=== PATIENT | female | born 1980 | race Two or more races ===

== ENCOUNTER 2019-06-26 13:47 | Emergency (ER) | payer OTHER ==
[2019-06-26 13:54] VITALS: BMI 31.1
[2019-06-26] MEDS ORDERED: FAMOTIDINE 20 MG/50 ML IVPB 20 MG/50 ML MG IVPB ONE ×2 (14:23→14:30)
[2019-06-26] MEDS ORDERED: SODIUM CHLORIDE 1,000 ML IV STA ×2 (14:24→15:50)
[2019-06-26] MEDS ORDERED: MAG HYDROX/AL HYDROX/SIMETH 30 ML UNIT-DOSE CUP PO ONE (14:24)
[2019-06-26] MEDS ORDERED: ONDANSETRON 4 MG/2 ML VIAL IVPUSH ONE ×2 (14:24→15:49)
[2019-06-26] MEDS ORDERED: MAG HYDROX/AL HYDROX/SIMETH 30 ML UNIT-DOSE CUP ONE (14:29)
[2019-06-26] MEDS ORDERED: ONDANSETRON 4 MG/2 ML VIAL ONE ×2 (14:30→16:04)
[2019-06-26 14:45] LABS: BASO % 0.7 % (0-2.0); EOS % 2.3 % (0-4.5); HEMATOCRIT 31.8 % (32.4-45.2); HEMOGLOBIN 10.6 GM/dL (10.7-15.3); LYMPH % 20.7 % (8-40); MCH 28.6 pg (25.7-33.7); MCHC 33.3 g/dl (32.0-36.0); MEAN PLT VOLUME 7.7 fl (7.5-11.1); MONO % 7.5 % (3.8-10.2); NEUT % 68.8 % (42.8-82.8); PLATELET COUNT 326 K/MM3 (134-434); RDW 14.2 % (11.6-15.6)
[2019-06-26 15:09] LABS: ALBUMIN 3.9 g/dl (3.4-5.0); BILIRUBIN,TOTAL 0.2 mg/dL (0.2-1); BLOOD UREA NITROGEN 11.8 mg/dL (7-18); CALCIUM 9.1 mg/dL (8.5-10.1); CREATININE 0.8 mg/dL (0.55-1.3); POTASSIUM 3.9 mmol/L (3.5-5.1); TOT PROT 7.4 g/dl (6.4-8.2)
--- NOTE | 2019-06-26 15:09 | PDOC ---
History of Present Illness - General Chief Complaint: Pain Stated Complaint: ABD. PAIN Time Seen by Provider: 06/26/19 14:22 History Source: Patient - History of Present Illness Timing/Duration: reports: constant Abdominal Pain Onset Location: reports: epigastric Pain Radiation: reports: back Past History - Past Medical History Allergies/Adverse Reactions: Allergies Allergy/AdvReac Type Severity Reaction Status Date / Time No Known Allergies Allergy Verified 06/26/19 14:18 Home Medications: Ambulatory Orders Acetaminophen [Tylenol -] 1,000 mg PO Q6H #30 tablet 06/26/19 Famotidine [Pepcid] 20 mg PO BID #14 tablet 06/26/19 Mag Hydrox/Al Hydrox/Simeth [Mylanta Suspension -] 30 ml PO Q6H #1 bottle 06/26/19 Ondansetron HCl [Zofran] 4 mg PO Q8H #12 tablet 06/26/19 - Psycho Social/Smoking Cessation Hx Smoking History: Never smoked Information on smoking cessation initiated: No Hx Alcohol Use: No Drug/Substance Use Hx: No Review of Systems - Review of Systems Constitutional: No: Chills, Fever Respiratory: No: Shortness of Breath Cardiac (ROS): No: Chest Pain ABD/GI: Yes: Nausea, Vomiting. No: Blood Streaked Bowels, Constipated, Diarrhea, Rectal Bleeding, Tarry Stools : No: Burning, Dysuria, Discharge, Hematuria *Physical Exam - Vital Signs Last Vital Signs Temp Pulse Resp BP Pulse Ox 97.5 F L 85 17 122/74 100 06/26/19 13:51 06/26/19 13:51 06/26/19 13:51 06/26/19 13:51 06/26/19 13:51 - Physical Exam General Appearance: Yes: Appropriately Dressed, Mild Distress HEENT: positive: Normal Voice Neck: positive: Supple Respiratory/Chest: positive: Lungs Clear, Normal Breath Sounds. negative: Respiratory Distress Cardiovascular: positive: Regular Rate, S1, S2 Gastrointestinal/Abdominal: positive: Normal Bowel Sounds, Tender (to epigatrium only), Soft. negative: Distended, Guarding, Rebound Musculoskeletal: negative: CVA Tenderness Integumentary: positive: Dry, Warm Neurologic: positive: Fully Oriented, Alert, Normal Mood/Affect ED Treatment Course - LABORATORY CBC & Chemistry Diagram: 06/26/19 14:18 06/26/19 14:18 - ADDITIONAL ORDERS Additional order review: 06/26/19 14:18 RBC 3.70 MCV 86.0 MCHC 33.3 RDW 14.2 MPV 7.7 Neutrophils % 68.8 Lymphocytes % 20.7 Monocytes % 7.5 Eosinophils % 2.3 Basophils % 0.7 - Medications Given in the ED: ED Medications Discontinued Medications Generic Name Dose Route Start Last Admin Trade Name Jes PRN Reason Stop Dose Admin Al Hydroxide/Mg Hydroxide 30 ml 06/26/19 14:24 06/26/19 14:39 Mylanta Oral Suspension - PO 06/26/19 14:25 30 ml ONCE ONE Administration Famotidine/Sodium Chloride 20 mg in 50 mls @ 100 mls/hr 06/26/19 14:23 06/26/19 14:39 Pepcid 20 Mg Premixed Ivpb - IVPB 06/26/19 14:52 100 mls/hr ONCE ONE Administration Ondansetron HCl 4 mg 06/26/19 14:24 06/26/19 14:39 Zofran Injection IVPUSH 06/26/19 14:25 4 mg ONCE ONE Administration Medical Decision Making - Medical Decision Making 06/26/19 15:02 39-year-old female, no significant history, here with severe upper abdominal pain radiating to back with nausea/vomiting that started this a.m. No change in bowel movements, dysuri,a hematuria, fever or chills. No history of similar symptoms. Denies history of gallstones or kidney stones. No excessive alcohol or NSAID use per patient see exam ? gastritis/GERD vs biliary source vs UTI/pyelo, less likely renal colic, pancreatitis or appy -trial of GI cocktail -labs -reassess 06/26/19 15:50 Labs unremarkable. Patient continues to complain of severe epigastric pain and nausea. We will continue to control symptoms in ED. Pt signed out to NIDA Byers at this time Discharge - Discharge Information Problems reviewed: Yes Clinical Impression/Diagnosis: Epigastric abdominal pain - Additional Discharge Information Prescriptions: Mag Hydrox/Al Hydrox/Simeth [Mylanta Suspension -] 30 ml PO Q6H #1 bottle Famotidine [Pepcid] 20 mg PO BID #14 tablet Acetaminophen [Tylenol -] 1,000 mg PO Q6H #30 tablet Ondansetron HCl [Zofran] 4 mg PO Q8H #12 tablet - Follow up/Referral - Patient Discharge Instructions - Post Discharge Activity
[2019-06-26] MEDS ORDERED: ACETAMINOPHEN 1000 MG/100 ML VIAL (NON FORMULARY) IVPB ONE (15:25)
[2019-06-26 15:58] LABS: EPI CELLS 2.3 /HPF (0-5/HPF); HYALINE CASTS 4 /lpf (0-8); URINE APPEARANCE CLOUDY; URINE BACTERIA 9.6 /hpf (NEGATIVE); URINE BILIRUBIN NEGATIVE (NEGATIVE); URINE COLOR YELLOW; URINE GLUCOSE (UA) NEGATIVE (NEGATIVE); URINE KETONE NEGATIVE (NEGATIVE); URINE LEUK ESTERASE NEGATIVE (NEGATIVE); URINE NITRITE NEGATIVE (NEGATIVE); URINE PROTEIN NEGATIVE (NEGATIVE); URINE RBC 127 /hpf (0-4); URINE UROBILINOGEN 0.2 mg/dL (0.2-1.0); URINE WBC 2 /hpf (0-5)
[2019-06-26] MEDS ORDERED: ACETAMINOPHEN INJECTION 100 ML IVPB ONE (16:03)
--- NOTE | 2019-06-26 16:51 | PDOC ---
*Physical Exam - Vital Signs Last Vital Signs Temp Pulse Resp BP Pulse Ox 97.5 F L 85 17 122/74 100 06/26/19 13:51 06/26/19 13:51 06/26/19 13:51 06/26/19 13:51 06/26/19 13:51 - Physical Exam General Appearance: Yes: Appropriately Dressed. No: Apparent Distress Respiratory/Chest: positive: Lungs Clear, Normal Breath Sounds. negative: Respiratory Distress, Accessory Muscle Use Cardiovascular: positive: Regular Rhythm, Regular Rate. negative: Murmur Gastrointestinal/Abdominal: positive: Normal Bowel Sounds, Tender (Right side of the abdomen), Soft ED Treatment Course - LABORATORY CBC & Chemistry Diagram: 06/26/19 14:18 06/26/19 14:18 - ADDITIONAL ORDERS Additional order review: Laboratory Results 06/26/19 06/26/19 06/26/19 15:18 15:18 14:18 Sodium 140 Potassium 3.9 Chloride 104 Carbon Dioxide 29 Anion Gap 7 L BUN 11.8 Creatinine 0.8 Est GFR (CKD-EPI)AfAm 109.16 Est GFR (CKD-EPI)NonAf 94.18 Random Glucose 106 Calcium 9.1 Total Bilirubin 0.2 AST 16 ALT 26 Alkaline Phosphatase 71 Total Protein 7.4 Albumin 3.9 Lipase 113 Urine Color Yellow Urine Appearance Cloudy Urine pH 5.0 Ur Specific [place] 1.030 Urine Protein Negative Urine Glucose (UA) Negative Urine Ketones Negative Urine Blood 2+ H Urine Nitrite Negative Urine Bilirubin Negative Urine Urobilinogen 0.2 Ur Leukocyte Esterase Negative Urine WBC (Auto) 2 Urine RBC (Auto) 127 Urine Casts (Auto) 4 U Epithel Cells (Auto) 2.3 Urine Bacteria (Auto) 9.6 Urine HCG, Qual Negative 06/26/19 14:18 RBC 3.70 MCV 86.0 MCHC 33.3 RDW 14.2 MPV 7.7 Neutrophils % 68.8 Lymphocytes % 20.7 Monocytes % 7.5 Eosinophils % 2.3 Basophils % 0.7 - Medications Given in the ED: ED Medications Discontinued Medications Generic Name Dose Route Start Last Admin Trade Name Freq PRN Reason Stop Dose Admin Acetaminophen 1,000 mg 06/26/19 15:25 06/26/19 16:11 Ofirmev Injection - IVPB 06/26/19 15:26 1,000 mg ONCE ONE Administration Al Hydroxide/Mg Hydroxide 30 ml 06/26/19 14:24 06/26/19 14:39 Mylanta Oral Suspension - PO 06/26/19 14:25 30 ml ONCE ONE Administration Famotidine/Sodium Chloride 20 mg in 50 mls @ 100 mls/hr 06/26/19 14:23 06/26/19 14:39 Pepcid 20 Mg Premixed Ivpb - IVPB 06/26/19 14:52 100 mls/hr ONCE ONE Administration Sodium Chloride 1,000 mls @ 1,000 mls/hr 06/26/19 14:24 06/26/19 14:39 Normal Saline - IV 06/26/19 15:23 1,000 mls/hr ASDIR STA Administration Sodium Chloride 1,000 mls @ 1,000 mls/hr 06/26/19 15:50 06/26/19 16:11 Normal Saline - IV 06/26/19 16:49 1,000 mls/hr ASDIR STA Administration Ondansetron HCl 4 mg 06/26/19 14:24 06/26/19 14:39 Zofran Injection IVPUSH 06/26/19 14:25 4 mg ONCE ONE Administration Ondansetron HCl 4 mg 06/26/19 15:49 06/26/19 16:11 Zofran Injection IVPUSH 06/26/19 15:50 4 mg ONCE ONE Administration ED Progress Note - Progress Note Progress Note: 06/26/19 16:50 Received signout from GABRIEL Rodriguez. Briefly this a 39-year-old woman with upper abdominal pain radiating to the back with nausea and vomiting starting this morning. Patient has been treated with Mylanta, Pepcid and Zofran and is currently receiving a second dose of Zofran and IV fluids. Laboratory testing is unremarkable with urine samples pending. Disposition pending reevaluation of pain. Medical Decision Making - Medical Decision Making 06/26/19 20:31 CT scan is read by Dr. Berman: Mild extrahepatic and intrahepatic biliary tract dilatation is noted MRI/MRCP evaluation is suggested nonemergent versus emergent as clinically indicated. The gallbladder is moderately over distended with minimal to mild pericholecystic soft tissue stranding-? Acute cholecystitis. Additional evaluation utilizing sonography may be considered. There is no definite CT evidence of acute appendicitis. A slightly dilated small bowel loop is seen within the mid to lower abdomen centrally containing increased intraluminal material suggestive of stasis. No gross obstruction lesion is identified on the current study. Mild splenomegaly Small umbilical hernia containing fat only. Gallbladder ultrasound Reassess 06/26/19 21:50 Ultrasound is read by Dr. Berman: Common bile duct is dilated with 0.9 cm diameter. No definite evidence of cholelithiasis. Moderate gallbladder over distention is seen without definite evidence of acute cholecystitis. Early acute cholecystitis may not be demonstrated on sonography. This patient's liver function testing is normal and is currently pain-free I feel is safe to discharge home to follow-up with GI as an outpatient. Results of all testing have been discussed with the patient who is in agreement with the current plan. Strict return precautions have been provided. I discussed the physical exam findings, ancillary test results and final diagnoses with the patient. I answered all of the patient's questions. The candis ent was satisfied with the care received and felt comfortable with the discharge plan and treatment plan. The patient will call their primary care physician within 24 hours to arrange follow-up and will return to the Emergency Department with any new, persistent or worsening symptoms. Portions of this note have been documented using voice recognition software. As a result, errors may occur in the superior court justice process. Effort has been made to correct all grammatical and superior court justice error, but some may have been missed which may produce sporadic inaccurate superior court justice or nonsensical phrases. Discharge - Discharge Information Problems reviewed: Yes Clinical Impression/Diagnosis: Epigastric abdominal pain Condition: Fair Disposition: HOME - Admission No - Additional Discharge Information Prescriptions: Mag Hydrox/Al Hydrox/Simeth [Mylanta Suspension -] 30 ml PO Q6H #1 bottle Famotidine [Pepcid] 20 mg PO BID #14 tablet Acetaminophen [Tylenol -] 1,000 mg PO Q6H #30 tablet Ondansetron HCl [Zofran] 4 mg PO Q8H #12 tablet - Follow up/Referral Referrals: Nini Gamez MD [Staff Physician] - - Patient Discharge Instructions Additional Instructions: Rest, drink lots of fluids: Teas, water, soups Beena chanelle, carbonated beverages for the bubbles May try peppermint teas Avoid heavy , spicy or fatty foods until symptoms have resolved Tylenol or Motrin for fever and pain May use Zofran-one tablet dissolved on tongue as needed for nausea. May repeat times one every 8 hours Followup with GI specialist in one to 2 days as needed Return to emergency department for worsened symptoms, fevers, dehydration [place], niko muchos lquidos: ts, agua, sopas Beena chanelle, bebidas gaseosas para las burbujas. Puede probar ts de menta Evite los alimentos pesados, picantes o grasos hasta que los sntomas se hayan resuelto. Tylenol o Motrin para la fiebre y el dolor. Puede usar la tableta de Zofran-one disuelta en la lengua segn sea necesario para las nuseas. Puede repetir los tiempos sonia cada 8 horas Seguimiento con especialista GI en sonia o 2 cordova segn sea necesario Regrese al departamento de emergencias por sntomas empeorados, fiebre, deshidratacin - Post Discharge Activity
[2019-06-26] MEDS ORDERED: morphine CARPU-JECT 4 MG/1 ML DISP.SYRIN IVPUSH ONE (16:54)
[2019-06-26] MEDS ORDERED: morphine SULFATE 4 MG/ML VIAL ONE (16:59)
[2019-06-26 17:07] VITALS: TEMP 97.7
[2019-06-26 22:00] VITALS: BP 94/64; PULSE 61
== END 2019-06-26 22:08 | disposition home or self-care (01) ==
LOC: JER 13:47
DX: R10.13 Epigastric pain (principal)
CPT/HCPCS: 36415; 74177-TC; 76705-TC; 80053; 81003; 83690; 84703; 85025; 99285-25; J0131; J7030; Q9967

== ENCOUNTER 2020-01-27 00:51 | Emergency (ER) | payer OTHER ==
--- OUTSIDE RECORDS SUMMARY | 2020-01-27 01:27 | XMS ---
:1980 [facility] Providers Name Role Phone Ekcarmelinawu, Eberechi Unavailable [phone] Ekechukwu, Eberechi Unavailable [phone] Aszalos, Iwona Jelena Unavailable Unavailable Aszalos, Jelena Unavailable Unavailable Aszalos, Jelena Unavailable Unavailable Aszalos, Jelena Unavailable Unavailable Aszalos, Jelena Unavailable Unavailable Aszalos, Jelena Unavailable Unavailable Aszalos, Jelena Unavailable Unavailable Aszalos, Jelena Unavailable Unavailable Aszalos, Jelena Unavailable Unavailable Robledo Unavailable Unavailable Robledo Unavailable Unavailable Robledo Unavailable Unavailable Robledo Unavailable Unavailable Robledo Unavailable Unavailable Robledo Unavailable Unavailable Robledo Unavailable Unavailable Robledo Unavailable Unavailable Robledo Unavailable Unavailable Robledo Unavailable Unavailable Leonela Munguia MD Unavailable Unavailable Leonela Munguia MD Unavailable Unavailable Leonela Munguia MD Unavailable Unavailable Leonela Munguia MD Unavailable Unavailable Leonela Munguia MD Unavailable Unavailable Leonela Munguia MD Unavailable Unavailable Leonela Munguia MD Unavailable Unavailable Leonela Munguia MD Unavailable Unavailable Leonela Munguia MD Unavailable Unavailable Leonela Munguia MD Unavailable Unavailable Leonela Munguia MD Unavailable Unavailable Leonela Munguia MD Unavailable Unavailable Leonela Munguia MD Unavailable Unavailable Leonela Munguia MD Unavailable Unavailable Leonela Munguia MD Unavailable Unavailable [place] Unavailable [phone] [place] Unavailable [phone] [place] Unavailable [phone] Re-disclosure Warning The records that you are about to access may contain information from federally- assisted alcohol or drug abuse programs. If such information is present, then the following federally mandated warning applies: This information has been disclosed to you from records protected by federal confidentiality rules (42 CFR part 2). The federal rules prohibit you from making any further disclosure of this information unless further disclosure is expressly permitted by the written consent of the person to whom it pertains or as otherwise permitted by 42 CFR part 2. A general authorization for the release of medical or other information is NOT sufficient for this purpose. The Federal rules restrict any use of the information to criminally investigate or prosecute any alcohol or drug abuse patient.The records that you are about to access may contain highly sensitive health information, the redisclosure of which is protected by Article 27-F of the [facility] Public Health law. If you continue you may haveaccess to information: Regarding HIV / AIDS; Provided by facilities licensed or operated by the [facility] Office of Mental Health; or Provided by the [facility] Office for People With Developmental Disabilities. If such information is present, then the following [facility] mandated warning applies: This information has been disclosed to you from confidential records which are protected by state law. State law prohibits you from making any further disclosure of this information without the specific written consent of the person to whom it pertains, or as otherwise permitted by law. Any unauthorized further disclosure in violation of state law may result in a fine or group home sentence or both. A general authorization for the release of medical or other information is NOT sufficient authorization for further disclosure. Allergies and Adverse Reactions Type Description Substance Reaction Status Data Source(s ) Propensity to Propensity to Propensity to NEXTG EN ([facility] adverse reactions adverse reactions adverse reactions [facility] (disorder) (disorder) (disorder) Center) Family History Family Member Family Member Family Member Date of Description Data Source(s) Name Gender Status Status Unknown Female Diagnosis 06/06/2018 NEXTGEN ([facility] 12:00:00 AM [facility] EST [place]) Unknown Female Diagnosis 06/06/2018 NEXTGEN ([facility] 12:00:00 AM [facility] EST [place]) Encounters Encounter Providers Location Date Indications Data Source(s ) Attender: [facility] 01/01/2019 DIANA Munguia [facility] 12:43:00 Sarabjit PM EDT - Medical 01/01/2019 Center) 12:43:00 PM EDT Outpatient 10/03/2018 [facility] 10:01:00 Medical Center AM EDT Outpatient Attender: Iwona Garg 10/03/2018 [facility] AszalosAdmitter 08:42:00 Medical C enter : Iwona AM EDT AszalosReferrer : Iwona Daniels OutpatientOFFICE/OUT Attender: [facility] 10/03/2018 N EXTGEN ([facility] PATIENT VISIT, [facility] 08:42:00 Aniceto s Ekyury AM EDT - Medical 10/03/2018 Center) 08:42:00 AM EDT Outpatient 10/03/2018 [facility] 12:00:00 Medical Center AM EDT Outpatient 09/16/2018 [facility] 09:08:00 Medical Center AM EDT Outpatient Attender: Юлия Garg 09/16/2018 [facility] VelezAdmitter: 08:45:00 Medical Ce nter Юлия AM EDT VelezReferrer: Юлия Robledo OutpatientOFFICE/OUT Attender: [facility] 09/16/2018 Ayla EXTGEN ([facility] PATIENT VISIT, [facility] 08:45:00 Aniceto s Ekechjairou AM EDT - Medical 09/16/2018 Center) 08:45:00 AM EDT Outpatient 09/16/2018 [facility] 12:00:00 Medical Center AM EDT Attender: Mirela [facility] 08/27/2018 DIANA N ([facility] 12:22:00 [facility] EDT - Medical 08/27/2018 Center) 12:22:00 PM EDT Outpatient 07/29/2018 [facility] 01:46:00 Medical Center PM EDT Attender: [facility] 07/29/2018 NEXTGEN ([facility] 11:29:00 Sarabjit Ekechjairou AM EDT - Medical 07/29/2018 Center) 11:29:00 AM EDT Outpatient Attender: Юлия Garg 07/29/2018 [facility] VelezAdmitter: 11:29:00 Medical Ce nter Юлия AM EDT VelezReferrer: Юлия Robledo Outpatient 07/29/2018 [facility] 12:00:00 Medical Center AM EDT Outpatient 07/17/2018 [facility] 11:24:00 Medical Center AM EDT Outpatient 07/17/2018 [facility] 12:00:00 Medical Center AM EDT Attender: [facility] 07/11/2018 NEXTGEN ([facility] 12:59:00 Sarabjit Ekechukwu PM EDT - Medical 07/11/2018 Center) 12:59:00 PM EDT Attender: [facility] 06/29/2018 NEXTGEN ([facility] 09:54:00 Sarabjit Ekechukwu PM EDT - Medical 06/29/2018 [place]) 09:54:00 PM EDT Outpatient H 06/21/2018 [facility] 01:01:00 Medical Center PM EST Attender: [facility] 01:01:00 Sarabjit Ekechukwu PM EST - Medical 06/21/2018 [place]) 01:01:00 PM EST Outpatient 06/21/2018 [facility] 11:25:00 Medical Center AM EST Outpatient 06/21/2018 [facility] 12:00:00 Medical Center AM EST [facility] 02:38:00 Sarabjit Ekechukwu PM EST - Medical 06/20/2018 [place]) 02:38:00 PM EST Attender: [facility] 05:01:00 Sarabjit Ekechukwu PM EST - Medical 06/14/2018 [place]) 05:01:00 PM EST Outpatient Attender: [facility] 06/06/2018 [facility] VelezAdmitter: 09:10:00 Medical Ce nter Юлия AM EST VelezReferrer: Юлия Robledo OutpatientWell Attender: [facility] 06/06/2018 NEXTGEN ([facility] 09:10:00 Sarabjit Laureano,18-39years Ekechukwu AM EST - Medical 06/06/2018 [place]) 09:10:00 AM EST Outpatient H 05/30/2018 [facility] 01:19:00 Medical Center PM EST Attender: [facility] 05/30/2018 NEXTGEN [facility] 01:19:00 Sarabjit Harp PM EST - Medical 05/30/2018 [place]) 01:19:00 PM EST Medications Medication Brand Start Product Dose Route Administrative Pharm[facility] Indications Reaction Description Data Name Date Form Instructions Instructions Source(s) Amoxicillin amoxic ORAL complet take 2 NEXTGEN 500 MG Oral illin 2018 {tbl} ed tablet by ( [facility] Tablet 500 mg 12:00: oral route Yadiel ephs amoxicillin tablet 00 AM every 12 M edical 500 mg EDT hours Center) tablet Clarithromy clarit ORAL complet take 1 NEXTGEN paty 500 MG hromyc 2018 {tbl} ed tablet by ( [facility] Oral Tablet in 500 12:00: oral rout e Sarabjit clarithromy mg 00 AM every 12 Med ical paty 500 mg tablet EDT hours Center ) tablet Omeprazole omepra ORAL complet take 1 NEXTGEN 40 MG zole 2018 {caps ed capsule by ([facility] Delayed 40 mg 12:00: ule} oral route Yadiel ephs Release capsul 00 AM every day Medi morena Oral e,anny EDT before a Center) Capsule yed meal omeprazole releas 40 mg e capsule,del ayed release Ascorbic Vitami 06/21/ active Take 1 NEX TGEN Acid 500 MG n C 2019 tablet 3 (Luis nt Oral Tablet 500 mg 12:00: times per Sarabjit Vitamin C tablet 00 AM day Medical 500 mg EST Center) tablet Famotidine famoti ORAL active take 1 N EXTGEN 40 MG Oral dine 2018 {tbl} tablet by (Sa int Tablet 40 mg 12:00: oral route Seymour phs famotidine tablet 00 AM every day a t Medical 40 mg EST bedtime Center) tablet ferrous ferrou 06/21/ active take 1 NEXT GEN sulfate 325 s 2019 tablet by (Sa int MG Oral sulfat 12:00: oral route 3 Sarabjit Tablet e 325 00 AM times every Medi morena ferrous mg (65 EST day Center) sulfate 325 mg mg (65 mg iron) iron) tablet tablet Omeprazole omepra ORAL complet take 1 NEXTGEN 40 MG zole 2018 {caps ed capsule by (Saint Delayed 40 mg 12:00: ule} oral route Yadiel ephs Release capsul 00 AM every day Medi morena Oral e,anny EST before a Center) Capsule yed meal omeprazole releas 40 mg e capsule,del ayed release Insurance Providers Payer name Policy type Policy ID Covered Covered libertarian's Policy P azul / Coverage libertarian ID relationship to Ghotra Inf ormation type ghotra OLGA [id number] ESSENTIAL PLAN 3 4 OLGA Clement [id number] 01 [id number] ESSENTIAL PLAN OLGA Clement [id number] ESSENTIAL PLAN Problems, Conditions, and Diagnoses Code Display Name Description Problem Type Effective Data Dates Source(s) [id number] Gastroesophageal Gastroesophageal Problem NE XTGEN reflux disease reflux disease ([facility]) Z71.9 Counseling, COUNSELING, Diagnosis 10/03/2018 [facility] unspecified UNSPECIFIED 08:42:[address] [facility] Z71.3 Dietary counseling DIETARY COUNSELING Diagnosis 9 and surveillance AND SURVEILLANCE 08:42:00 AM [facility] B96.81 Helicobacter pylori HELICOBACTER PYLORI Diagnosis [facility] [H. pylori] as the THE CAUSE OF 08:42:00 AM [facility] cause of diseases DISEASES CLASSD EDT Ok dical classified elsewhere [facility] er Z68.28 Body mass index BODY MASS INDEX Diagnosis 09/16/2018 [facility] (BMI) 28.0-28.9, (BMI) 28.0-28.9, 08:45:00 AM [facility] adult ADULT [facility] Z71.89 Other specified OTHER SPECIFIED Diagnosis 09/16/2018 [facility] leong counseling COUNSELING 08:45:[address] [facility] E78.5 Hyperlipidemia, HYPERLIPIDEMIA, Diagnosis 06/21/2018 [facility] le[facility] unspecified UNSPECIFIED 01:01:00 PM [facility] D64.9 Anemia, unspecified ANEMIA, UNSPECIFIED Diagnosis 019 [facility] 01:01:00 PM [facility] R10.13 Epigastric pain EPIGASTRIC PAIN Diagnosis 06/21/2018 [facility] t 01:01:00 PM [facility] Surgeries/Procedures Procedure Description Date Indications Data Source(s) OFFICE/OUTPATIENT 10/03/2018 RACHAELGEN (Maribel Whipple VISIT, EST 12:00:00 AM EDT - Medical Ce nter) 10/03/2018 12:00:00 AM EDT OFFICE/OUTPATIENT 09/16/2018 NEXTGEN ([facility]ibel Whipple VISIT, EST 12:00:00 AM EDT - Medical Ce nter) 09/16/2018 12:00:00 AM EDT Well Visit, 06/06/2018 NEXTGEN ( Sarabjit [facility],18-39years 12:00:00 AM EST - Medica l Center) 06/06/2018 12:00:00 AM EST Results ID Date Data Source MROUTINECCDA.[id number] 06/21/2018 01:10:00 PM EST [facility] -0400 Name Value Range Interpretation Description Data Sup porting Code Source(s) Document(s ) Ferritin 11-264 Below low normal <content [facility] Sar[facility]it [Mass/volume styleCode="[facility] ] in Serum ">Ferritin Center or Plasma </content>5.87 NG/ML L<content styleCode="Ital ics"> (11-264 NG/ML)</content > Iron 37-170 <content [facility]it [Mass/volume styleCode="[facility] Medical ] in Serum ">Iron Center or Plasma </content>41 UG/DL<content styleCode="Ital ics"> (37-170 UG/DL)</content > ID Date Data Source CHMROUTINECCDA 06/21/2018 01:10:00 PM [facility] Name Value Range Interpretation Description Data Sup porting Code Source(s) Document(s ) UNK 4.2-5.8 <content [facility] styleCode="Bold Sarabjit ">Hemoglobin Medical A1C Center </content>5.4 %<content styleCode="Ital ics"> (4.2-5.8 %)</content> Iron 37-170 <content [facility] [Mass/volume styleCode="Bold Sarabjit ] in Serum ">Iron Medical or Plasma </content>41 Center UG/DL<content styleCode="Ital ics"> (37-170 UG/DL)</content > Ferritin 11-264 Below low normal <content [facility] [Mass/volume styleCode="Bold Sarabjit ] in Serum ">Ferritin Medical or Plasma </content>5.87 Center NG/ML L<content styleCode="Ital ics"> (11-264 NG/ML)</content > ID Date Data Source [id number] 06/20/2018 02:38:00 PM EST [facility] Name Value Range Interpretation Description Data Sup porting Code Source(s) Document(s ) UNK Not Detected <content [facility] styleCode="Bold Medical ">H. Pylori Ag, Center Ql, Stool </content>Detec joel <content styleCode="Ital ics"> (Not Detected )</content> ID Date Data Source [id number] 06/06/2018 11:22:00 AM EST [facility] Name Value Range Interpretation Description Data Sup porting Code Source(s) Document(s ) Cholesterol -<200 Above high normal <content [facility] [Mass/volume] in styleCode="[facility] Serum or Plasma d">Cholesterol Medical </content>249 Center MG/DL H<content styleCode="Amie lics"> (-<200 MG/DL)</conten t> UNK > 60 <content [facility] styleCode="Mikael Sarabjit d">HDL- Medical Cholesterol Center </content>62 MG/DL<content styleCode="Amie lics"> (> 60 MG/DL)</conten t> Triglyceride < 150 Above high normal <content [facility] [Mass/volume] in styleCode="Mikael Sarabjit Serum or Plasma d">Triglycerid Medical es Center </content>179 MG/DL H<content styleCode="Amie lics"> (< 150 MG/DL)</conten t> UNK < 100 Above high normal <content [facility] styleCode="Mikael Sarabjit d">LDL-Cholest Medical aly Center </content>151 MG/DL H<content styleCode="Amie lics"> (< 100 MG/DL)</conten t> ID Date Data Source [id number] 06/06/2018 11:22:00 AM EST [facility] Name Value Range Interpretation Description Data Sup porting Code Source(s) Document(s ) Thyrotropin 0.465-4. <content [facility] [Units/volume] 68 styleCode="Mikael [facility] in Serum or d">Thyroid Medical Plasma by Stimulating Center Detection Hormone limit <= 0.05 </content>2.84 mIU/L MIU/L<content styleCode="Amie lics"> (0.465-4.68 MIU/L)</conten t> ID Date Data Source HematologyRou.[id number] 06/06/2018 11:22:00 AM [facility] 0500 Name Value Range Interpretation Description Data Sup porting Code Source(s) Document(s ) Erythrocytes 4.0-5.1 Below low normal <content [facility] [#/volume] in styleCode="Bold Sarabjit Blood by ">Red Blood Medical Automated count Cell Count Center </content>3.82 MCUMM L<content styleCode="Ital ics"> (4.0-5.1 MCUMM)</content > Leukocytes 4.4-11.0 <content [facility] [#/volume] in styleCode="Bold Sarabjit Blood by ">White Blood Medical Automated count Cell Count Center </content>5.86 KCUMM<content styleCode="Ital ics"> (4.4-11.0 KCUMM)</content > Erythrocyte mean 26.0-34. <content [facility] corpuscular 0 styleCode="Bold Sarabjit hemoglobin ">Mean Medical [Entitic mass] Corposcular Center by Automated Hemoglobin count </content>27.0 PG<content styleCode="Ital ics"> (26.0-34.0 PG)</content> Hemoglobin 12.3-16. Below low normal <content [facility] [Mass/volume] in 0 styleCode="Bold Sarabjit Blood ">Hemoglobin Medical </content>10.3 Center G/DL L<content styleCode="Ital ics"> (12.3-16.0 G/DL)</content> Hematocrit 36.0-46. Below low normal <content [facility] [Volume 0 styleCode="Bold Sarabjit Fraction] of ">Hematocrit Medical Blood by </content>33.1 Center Automated count % L<content styleCode="Ital ics"> (36.0-46.0 %)</content> Erythrocyte mean 80.0-100 <content [facility] corpuscular .0 styleCode="Bold Sarabjit volume [Entitic ">Mean Medical volume] by Corpuscular Center Automated count Volume </content>86.6 FL<content styleCode="Ital ics"> (80.0-100.0 FL)</content> Erythrocyte 11.5-14. <content [facility] distribution 5 styleCode="Bold Sarabjit width [Ratio] by ">Red Cell Medical Automated count Distribution Center Width </content>14.1 %<content styleCode="Ital ics"> (11.5-14.5 %)</content> Platelets 130-400 <content [facility] [#/volume] in styleCode="Bold Sarabjit Blood by ">Platelet Medical Automated count Count Center </content>324 KCUMM<content styleCode="Ital ics"> (130-400 KCUMM)</content > Platelet mean 8.0-11.0 <content [facility] volume [Entitic styleCode="Bold Sarabjit volume] in Blood ">Mean Platelet Medical by Automated Volume Center count </content>10.2 FL<content styleCode="Ital ics"> (8.0-11.0 FL)</content> Erythrocyte mean 32.0-37. Below low normal <content [facility] corpuscular 0 styleCode="Bold Sarabjit hemoglobin ">Mean Corpus. Medical concentration Hgb Center [Mass/volume] by Concentration Automated count (MCHC) </content>31.1 G/DL L<content styleCode="Ital ics"> (32.0-37.0 G/DL)</content> UNK 1.0-4.8 <content [facility] styleCode="Bold Sarabjit ">Lymphocyte Medical Count Center </content>1.48 KCUMM<content styleCode="Ital ics"> (1.0-4.8 KCUMM)</content > Lymphocytes 24.0-44. <content [facility] [#/volume] in 0 styleCode="Bold Sarabjit Blood by ">Lymphocyte Medical Automated count </content>25.3 Center %<content styleCode="Ital ics"> (24.0-44.0 %)</content> Monocytes 3.0-10.0 <content [facility] [#/volume] in styleCode="Bold Sarabjit Blood by ">Monocyte Medical Automated count </content>9.0 Center %<content styleCode="Ital ics"> (3.0-10.0 %)</content> Neutrophils 36-66 <content Saint [#/volume] in styleCode="Bold Sarabjit Blood by ">Neutrophil Medical Automated count </content>63.0 Center %<content styleCode="Ital ics"> (36-66 %)</content> UNK 1.6-7.3 <content [facility] styleCode="Bold Sarabjit ">Neutrophil Medical Count Center </content>3.69 KCUMM<content styleCode="Ital ics"> (1.6-7.3 KCUMM)</content > Basophils 0.0-1.0 <content [facility] [#/volume] in styleCode="Bold Sarabjit Blood by ">Basophil Medical Automated count </content>0.7 Center %<content styleCode="Ital ics"> (0.0-1.0 %)</content> UNK 0.2-0.9 <content [facility] styleCode="Bold Sarabjit ">Monocyte Medical Count Center </content>0.53 KCUMM<content styleCode="Ital ics"> (0.2-0.9 KCUMM)</content > UNK 0.0-0.6 <content [facility] styleCode="Bold Sarabjit ">Eosinophil Medical Count Center </content>0.10 KCUMM<content styleCode="Ital ics"> (0.0-0.6 KCUMM)</content > Eosinophils 0-5.0 <content [facility] [#/volume] in styleCode="Bold Sarabjit Blood by ">Eosinophil Medical Automated count </content>1.7 Center %<content styleCode="Ital ics"> (0-5.0 %)</content> UNK 0.0-0.3 <content [facility] styleCode="Bold Sarabjit ">Basophil Medical Count Center </content>0.04 KCUMM<content styleCode="Ital ics"> (0.0-0.3 KCUMM)</content > UNK 0-0.1 <content [facility] styleCode="Bold Sarabjit ">Immature Medical Granulocyte Center Count </content>0.02 KCUMM<content styleCode="Ital ics"> (0-0.1 KCUMM)</content > UNK 0.0 <content [facility] styleCode="Bold Sarabjit ">Nucleated Red Medical Blood Cell Center Count </content>0.00 KCUMM<content styleCode="Ital ics"> (0.0 KCUMM)</content > UNK 0 <content [facility] styleCode="Bold Sarabjit ">Nucleated Red Medical Blood Cell Center </content>0.0 /100<content styleCode="Ital ics"> (0 /100)</content> UNK < 1 <content [facility] styleCode="Bold Sarabjit ">Immature Medical Granulocyte Center Ratio </content>0.3 %<content styleCode="Ital ics"> (< 1 %)</content> ID Date Data Source GFR(Creatinine).[id number] 06/06/2018 11:22:00 AM [facility] 0-0500 Name Value Range Interpretation Code Description Data Becka rce(s) Supporting Document(s ) UNK > 60 <content [facility] Sarabjit styleCode="Bold"> Medical Cent er EGFR </content>101 GFR<content styleCode="Italic s"> (> 60 GFR)</content> ID Date Data Source MROUTINEMARIODA.[id number] 06/06/2018 11:22:00 AM [facility] -0500 Name Value Range Interpretation Code Description Data Becka rce(s) Supporting Document(s ) UNK 4.2-5.8 <content [facility] styleCode="Bold" Medical Cente r >Hemoglobin A1C </content>5.4 %<content styleCode="Itali cs"> (4.2-5.8 %)</content> ID Date Data Source [facility].[id number] 06/06/2018 11:22:00 AM [facility] Name Value Range Interpretation Description Data Sup porting Code Source(s) Document(s ) Sodium 137-145 <content [facility] [Moles/volume] styleCode="Mikael Sarabjit in Serum or d">Sodium Medical Plasma </content>138 Center MEQ/L<content styleCode="Amie lics"> (137-145 MEQ/L)</conten t> Chloride 98-107 <content [facility] [Moles/volume] styleCode="Mikael Sarabjit in Serum or d">Chloride Medical Plasma </content>102 Center MEQ/L<content styleCode="Amie lics"> (98-107 MEQ/L)</conten t> UNK 7-17 <content [facility] styleCode="Mikael Sarabjit d">BUN Medical </content>15 Center MG/DL<content styleCode="Amie lics"> (7-17 MG/DL)</conten t> Potassium 3.5-5.3 <content [facility] [Moles/volume] styleCode="Mikael Sarabjit in Serum or d">Potassium Medical Plasma </content>4.5 Center MEQ/L<content styleCode="Amie lics"> (3.5-5.3 MEQ/L)</conten t> Carbon 22-30 <content [facility] dioxide, total styleCode="Mikael Sarabjit [Moles/volume] d">Carbon Medical in Serum or Dioxide Center Plasma </content>29 MEQ/L<content styleCode="Amie lics"> (22-30 MEQ/L)</conten t> Creatinine 0.5-1.3 <content [facility] [Mass/volume] styleCode="Mikael Sarabjit in Serum or d">Creatinine Medical Plasma </content>0.7 Center MG/DL<content styleCode="Amie lics"> (0.5-1.3 MG/DL)</conten t> Calcium 8.4-10.2 <content [facility] [Mass/volume] styleCode="Mikael Sarabjit in Serum or d">Calcium Medical Plasma </content>9.7 Center MG/DL<content styleCode="Amie lics"> (8.4-10.2 MG/DL)</conten t> Glucose 74-106 <content [facility] [Mass/volume] styleCode="Mikael Sarabijt in Serum or d">Glucose Medical Plasma </content>89 Center MG/DL<content styleCode="Amie lics"> (74-106 MG/DL)</conten t> UNK > 60 <content [facility] styleCode="Mikael Sarabjit d">EGFR Medical </content>101 Center GFR<content styleCode="Amie lics"> (> 60 GFR)</content> ID Date Data Source LIPID 06/06/2018 11:22:00 AM [facility] Name Value Range Interpretation Description Data Sup porting Code Source(s) Document(s ) Cholesterol -<200 Above high normal <content [facility] [Mass/volume] in styleCode="Mikael Sarabjit Serum or Plasma d">Cholesterol Medical </content>249 Center MG/DL H<content styleCode="Amie lics"> (-<200 MG/DL)</conten t> Triglyceride < 150 Above high normal <content [facility] [Mass/volume] in styleCode="Mikael Sarabjit Serum or Plasma d">Triglycerid Medical es Center </content>179 MG/DL H<content styleCode="Amie lics"> (< 150 MG/DL)</conten t> UNK > 60 <content [facility] styleCode="Mikael Sarabjit d">HDL- Medical Cholesterol Center </content>62 MG/DL<content styleCode="Amie lics"> (> 60 MG/DL)</conten t> UNK < 100 Above high normal <content Saint styleCode="Mikael Sarabjit d">LDL-Cholest Medical aly Center </content>151 MG/DL H<content styleCode="Amie lics"> (< 100 MG/DL)</conten t> ID Date Data Source Hormones 06/06/2018 11:22:00 AM [facility] Name Value Range Interpretation Description Data Sup porting Code Source(s) Document(s ) Thyrotropin 0.465-4. <content [facility] [Units/volume] 68 styleCode="[facility] in Serum or d">Thyroid Medical Plasma by Stimulating Center Detection Hormone limit <= 0.05 </content>2.84 mIU/L MIU/L<content styleCode="Amie lics"> (0.465-4.68 MIU/L)</conten t> ID Date Data Source HematologyRou 06/06/2018 11:22:00 AM EST [facility] Name Value Range Interpretation Description Data Sup porting Code Source(s) Document(s ) Hemoglobin 12.3-16. Below low normal <content [facility] [Mass/volume] in 0 styleCode="[facility] Blood ">Hemoglobin Medical </content>10.3 Center G/DL L<content styleCode="Ital ics"> (12.3-16.0 G/DL)</content> Erythrocytes 4.0-5.1 Below low normal <content [facility] [#/volume] in styleCode="[facility] Blood by ">Red Blood Medical Automated count Cell Count Center </content>3.82 MCUMM L<content styleCode="Ital ics"> (4.0-5.1 MCUMM)</content > Leukocytes 4.4-11.0 <content [facility] [#/volume] in styleCode="[facility] Blood by ">White Blood Medical Automated count Cell Count Center </content>5.86 KCUMM<content styleCode="Ital ics"> (4.4-11.0 KCUMM)</content > Erythrocyte mean 32.0-37. Below low normal <content [facility] corpuscular 0 styleCode="[facility] hemoglobin ">Mean Corpus. Medical concentration Hgb Center [Mass/volume] by Concentration Automated count (MCHC) </content>31.1 G/DL L<content styleCode="Ital ics"> (32.0-37.0 G/DL)</content> Hematocrit 36.0-46. Below low normal <content [facility] [Volume 0 styleCode="[facility] Fraction] of ">Hematocrit Medical Blood by </content>33.1 Center Automated count % L<content styleCode="Ital ics"> (36.0-46.0 %)</content> Erythrocyte mean 26.0-34. <content [facility] corpuscular 0 styleCode="[facility] hemoglobin ">Mean Medical [Entitic mass] Corposcular Center by Automated Hemoglobin count </content>27.0 PG<content styleCode="Ital ics"> (26.0-34.0 PG)</content> Erythrocyte 11.5-14. <content [facility] distribution 5 styleCode="[facility] width [Ratio] by ">Red Cell Medical Automated count Distribution Center Width </content>14.1 %<content styleCode="Ital ics"> (11.5-14.5 %)</content> Erythrocyte mean 80.0-100 <content [facility] corpuscular .0 styleCode="[facility] volume [Entitic ">Mean Medical volume] by Corpuscular Center Automated count Volume </content>86.6 FL<content styleCode="Ital ics"> (80.0-100.0 FL)</content> Platelet mean 8.0-11.0 <content [facility] volume [Entitic styleCode="[facility] volume] in Blood ">Mean Platelet Medical by Automated Volume Center count </content>10.2 FL<content styleCode="Ital ics"> (8.0-11.0 FL)</content> Neutrophils 36-66 <content [facility] [#/volume] in styleCode="[facility] Blood by ">Neutrophil Medical Automated count </content>63.0 Center %<content styleCode="Ital ics"> (36-66 %)</content> Platelets 130-400 <content [facility] [#/volume] in styleCode="[facility] Blood by ">Platelet Medical Automated count Count Center </content>324 KCUMM<content styleCode="Ital ics"> (130-400 KCUMM)</content > Lymphocytes 24.0-44. <content [facility] [#/volume] in 0 styleCode="[facility] Blood by ">Lymphocyte Medical Automated count </content>25.3 Center %<content styleCode="Ital ics"> (24.0-44.0 %)</content> Monocytes 3.0-10.0 <content [facility] [#/volume] in styleCode="[facility] Blood by ">Monocyte Medical Automated count </content>9.0 Center %<content styleCode="Ital ics"> (3.0-10.0 %)</content> UNK 1.0-4.8 <content [facility] styleCode="[facility] ">Lymphocyte Medical Count Center </content>1.48 KCUMM<content styleCode="Ital ics"> (1.0-4.8 KCUMM)</content > UNK 1.6-7.3 <content [facility] styleCode="[facility] ">Neutrophil Medical Count Center </content>3.69 KCUMM<content styleCode="Ital ics"> (1.6-7.3 KCUMM)</content > Basophils 0.0-1.0 <content [facility] [#/volume] in styleCode="[facility] Blood by ">Basophil Medical Automated count </content>0.7 Center %<content styleCode="Ital ics"> (0.0-1.0 %)</content> Eosinophils 0-5.0 <content [facility] [#/volume] in styleCode="[facility] Blood by ">Eosinophil Medical Automated count </content>1.7 Center %<content styleCode="Ital ics"> (0-5.0 %)</content> UNK 0.2-0.9 <content [facility] styleCode="[facility] ">Monocyte Medical Count Center </content>0.53 KCUMM<content styleCode="Ital ics"> (0.2-0.9 KCUMM)</content > UNK 0.0-0.6 <content [facility] styleCode="[facility] ">Eosinophil Medical Count Center </content>0.10 KCUMM<content styleCode="Ital ics"> (0.0-0.6 KCUMM)</content > UNK 0 <content [facility] styleCode="[facility] ">Nucleated Red Medical Blood Cell Center </content>0.0 /100<content styleCode="Ital ics"> (0 /100)</content> UNK 0.0-0.3 <content [facility] styleCode="[facility] ">Basophil Medical Count Center </content>0.04 KCUMM<content styleCode="Ital ics"> (0.0-0.3 KCUMM)</content > UNK 0.0 <content [facility] styleCode="[facility] ">Nucleated Red Medical Blood Cell Center Count </content>0.00 KCUMM<content styleCode="Ital ics"> (0.0 KCUMM)</content > UNK 0-0.1 <content [facility] styleCode="[facility] ">Immature Medical Granulocyte Center Count </content>0.02 KCUMM<content styleCode="Ital ics"> (0-0.1 KCUMM)</content > UNK < 1 <content [facility] styleCode="[facility] ">Immature Medical Granulocyte Center Ratio </content>0.3 %<content styleCode="Ital ics"> (< 1 %)</content> ID Date Data Source GFR(Creatinine) 06/06/2018 11:22:00 AM [facility] Name Value Range Interpretation Code Description Data Becka rce(s) Supporting Document(s ) UNK > 60 <content [facility] styleCode="Bold"> Medical Cent er EGFR </content>101 GFR<content styleCode="Italic s"> (> 60 GFR)</content> ID Date Data Source BMP 06/06/2018 11:22:00 AM [facility] Name Value Range Interpretation Description Data Sup porting Code Source(s) Document(s ) Sodium 137-145 <content [facility] [Moles/volume] styleCode="Mikeal [facility] in Serum or d">Sodium Medical Plasma </content>138 Center MEQ/L<content styleCode="Amie lics"> (137-145 MEQ/L)</conten t> Potassium 3.5-5.3 <content [facility] [Moles/volume] styleCode="Mikael [facility] in Serum or d">Potassium Medical Plasma </content>4.5 Center MEQ/L<content styleCode="Amie lics"> (3.5-5.3 MEQ/L)</conten t> Carbon 22-30 <content [facility] dioxide, total styleCode="Mikael Sarabjit [Moles/volume] d">Carbon Medical in Serum or Dioxide Center Plasma </content>29 MEQ/L<content styleCode="Amie lics"> (22-30 MEQ/L)</conten t> Glucose 74-106 <content [facility] [Mass/volume] styleCode="Mikael Sarabjit in Serum or d">Glucose Medical Plasma </content>89 Center MG/DL<content styleCode="Amie lics"> (74-106 MG/DL)</conten t> Chloride 98-107 <content [facility] [Moles/volume] styleCode="[facility]ael [facility] in Serum or d">Chloride Medical Plasma </content>102 Center MEQ/L<content styleCode="Amie lics"> (98-107 MEQ/L)</conten t> Creatinine 0.5-1.3 <content [facility] [Mass/volume] styleCode="M[facility] in Serum or d">Creatinine Medical Plasma </content>0.7 Center MG/DL<content styleCode="Amie lics"> (0.5-1.3 MG/DL)</conten t> UNK 7-17 <content [facility] styleCode="Mikael Sarabjit d">BUN Medical </content>15 Center MG/DL<content styleCode="Amie lics"> (7-17 MG/DL)</conten t> UNK > 60 <content [facility] styleCode="Mikael Sarabjit d">EGFR Medical </content>101 Center GFR<content styleCode="Amie lics"> (> 60 GFR)</content> Calcium 8.4-10.2 <content [facility] [Mass/volume] styleCode="Mikael [facility] in Serum or d">Calcium Medical Plasma </content>9.7 Center MG/DL<content styleCode="Amie lics"> (8.4-10.2 MG/DL)</conten t> Procedure Social History Code Duration Value Status Description Data Source(s ) Caffeine Use 10/03/2018 coffee, 1 cup completed coffee, 1 cup NEXTGE N ([facility] Details 12:00:[address] [facility]) 10/03/2018 Current completed Current NEXTGEN ([facility] 12:00:00 AM EDT non-smoker non-smoker [facility]) Smoking 10/03/2018 Unknown if completed Unknown if ever NEXTGEN ( [facility] 12:00:00 AM EDT ever smoked smoked [facility]) Smoking Unknown if completed Unknown if ever [facility] ever [facility] smoked [facility] r Alcohol Use completed NEXTGEN ([facility]) Vital Signs ID Date Data Source UNK Name Value Range Interpretation Code Description Data Source(s) Oxygen saturation 100 % 100 % NEXTGEN ([facility] in Arterial [facility] by Pulse oximetry [place]) Body mass index 29.21 kg/m2 Overweight 29.21 kg/m2 NEXTGEN ([facility] (BMI) [Ratio] [facility]) Respiratory rate 20 /min 20 /min NEXTGEN ([facility]) Body temperature 36.67 Lynn 36.67 Lynn [facility] Heart rate 73 /min 73 /min NEXTGEN ([facility]) Diastolic blood 63 mm[Hg] 63 mm[Hg] NEXTGEN ( [facility]) Systolic blood 96 mm[Hg] 96 mm[Hg] [facility] Body weight 76.657 kg 76.657 kg [facility] Body height 162.00 cm 162.00 cm [facility] ([facility]) Oxygen saturation 98 % 98 % NEXTGEN ([facility] Arterial [facility] by Pulse oximetry Center) Body mass index 28.79 kg/m2 Overweight 28.79 kg/m2 NEXTGEN ([facility] (BMI) [Ratio] [facility]) Respiratory rate 16 /min 16 /min [facility] Body temperature 36.78 Lynn 36.78 Lynn [facility] ([facility]) Heart rate 62 /min 62 /min [facility] Diastolic blood 65 mm[Hg] 65 mm[Hg] NEXTGEN ( [facility]) Systolic blood 95 mm[Hg] 95 mm[Hg] [facility] Body weight 75.568 kg 75.568 kg [facility] ([facility]) Body height 162.00 cm 162.00 cm [facility] ([facility]) Oxygen saturation 100 % 100 % [facility] ([facility] in Arterial [facility] by Pulse oximetry Center) Body mass index 29.21 kg/m2 Overweight 29.21 kg/m2 NEXTGEN ([facility] (BMI) [Ratio] [facility]) Respiratory rate 16 /min 16 /min [facility] ([facility]) Body temperature 36.89 Lynn 36.89 Lynn NEXTGEN ([facility]) Heart rate 64 /min 64 /min NEXTGEN ([facility]) Diastolic blood 67 mm[Hg] 67 mm[Hg] [facility] ( [facility]) Systolic blood 104 mm[Hg] 104 mm[Hg] [facility] Body weight 76.657 kg 76.657 kg [facility] Body height 162.00 cm 162.00 cm [facility] Patient Treatment Plan of Care Planned Activity Planned Date Details Description Data Source (s) Omeprazole 40 MG Delayed 09/16/2018 12:00:00 [facility] ([facility] Release Oral Capsule [facility]) Amoxicillin 500 MG Oral 09/16/2018 12:00:00 [facility] ([facility]) Clarithromycin 500 MG Oral 09/16/2018 12:00:00 [facility] ([facility]) Ascorbic Acid 500 MG Oral 06/21/2018 12:00:00 [facility] ([facility]) ferrous sulfate 325 MG 06/21/2018 12:00:00 [facility] ([facility] Oral Tablet [facility]) Famotidine 40 MG Oral 06/21/2018 12:00:00 [facility] ([facility]) Omeprazole 40 MG Delayed 06/06/2018 12:00:00 [facility] ([facility] Release Oral Capsule [facility])
[2020-01-27 01:31] VITALS: TEMP 98.4; BMI 32.2
[2020-01-27] MEDS ORDERED: SODIUM CHLORIDE 1,000 ML IV STA (01:52)
[2020-01-27] MEDS ORDERED: HYDROmorphone HCL CARPU-JECT 2 MG/1 ML DISP.SYRIN IVPUSH ONE (01:54)
[2020-01-27] MEDS ORDERED: ONDANSETRON 4 MG/2 ML VIAL IVPUSH ONE (02:00)
[2020-01-27] MEDS ORDERED: HYDROmorphone HCl 2 MG/ML VIAL ONE (02:27)
[2020-01-27 02:30] LABS: EOS % 2.3 % (0-4.5); HEMATOCRIT 30.9 % (32.4-45.2); HEMOGLOBIN 10.3 GM/dL (10.7-15.3); LYMPH % 28.7 % (8-40); MCH 27.7 pg (25.7-33.7); MCHC 33.4 g/dl (32.0-36.0); MEAN CELL VOLUME 82.7 fl (80-96); MEAN PLT VOLUME 7.8 fl (7.5-11.1); MONO % 8.5 % (3.8-10.2); NEUT % 59.5 % (42.8-82.8); PLATELET COUNT 281 K/MM3 (134-434); RBC 3.73 M/mm3 (3.60-5.2); RDW 14.9 % (11.6-15.6); WHITE BLOOD COUNT 4.7 K/mm3 (4.0-10.0)
--- NOTE | 2020-01-27 02:53 | PDOC ---
History of Present Illness - General Chief Complaint: Pain, Acute Stated Complaint: ABD PAIN Time Seen by Provider: 01/27/20 01:49 History Source: Patient - History of Present Illness Initial Comments: 01/27/20 03:19 39-year-old female complaining of right upper quadrant pain for the last 3 days. Patient reports that the pain is shortly after eating. Denies urinary symptoms, nausea, vomiting. Patient seen in this ER in June for similar complaints. 01/27/20 04:33 Past History - Medical History Allergies/Adverse Reactions: Allergies Allergy/AdvReac Type Severity Reaction Status Date / Time No Known Allergies Allergy Verified 01/27/20 01:31 Home Medications: Ambulatory Orders Acetaminophen [Tylenol -] 1,000 mg PO Q6H #30 tablet 06/26/19 Famotidine [Pepcid] 20 mg PO BID #14 tablet 06/26/19 Mag Hydrox/Al Hydrox/Simeth [Mylanta Suspension -] 30 ml PO Q6H #1 bottle 06/26/19 Ondansetron HCl [Zofran] 4 mg PO Q8H #12 tablet 06/26/19 COPD: No - Surgical History Cardiac Surgery: No GI Surgery: No Neurologic Surgery: No - Reproductive History Is Patient Now?: No - Immunization History Immunization Up to Date: No - Psycho-Social/Smoking History Smoking History: Never smoked Information on smoking cessation initiated: No - Substance Abuse Hx (Audit-C & DAST Scrn) How often the patient has a drink containing alcohol: Never Score: In Men: 4 or > Positive; In Women: 3 or > Positive: 0 Screen Result (Pos requires Nsg. Audit-10AR): Negative In the last yr the pt used illegal drug/Rx for NonMed reason: No Score: Yes response is considered Positive: 0 Screen Result (Positive result requires Nsg. DAST-10): Negative *Physical Exam - Vital Signs Last Vital Signs Temp Pulse Resp BP Pulse Ox 98.4 F 74 18 109/74 100 01/27/20 01:00 01/27/20 01:00 01/27/20 01:00 01/27/20 01:00 01/27/20 01:00 - Physical Exam General Appearance: Yes: Appropriately Dressed Respiratory/Chest: positive: Lungs Clear, Normal Breath Sounds Gastrointestinal/Abdominal: positive: Normal Bowel Sounds, Tender (RUQ tenderness), Soft Musculoskeletal: positive: Normal Inspection. negative: CVA Tenderness Extremity: positive: Normal Capillary Refill, Normal Inspection, Normal Range of Motion Integumentary: positive: Normal Color, Dry, Warm Neurologic: positive: Fully Oriented, Alert, Normal Mood/Affect ED Treatment Course - LABORATORY CBC & Chemistry Diagram: 01/27/20 02:10 01/27/20 02:10 - ADDITIONAL ORDERS Additional order review: 01/27/20 02:10 RBC 3.73 MCV 82.7 MCHC 33.4 RDW 14.9 MPV 7.8 Neutrophils % 59.5 Lymphocytes % 28.7 D Monocytes % 8.5 Eosinophils % 2.3 Basophils % 1.0 - RADIOLOGY Radiology Studies Ordered: Category Date Time Status ABDOMEN US -LIMITED [US] Stat Ultrasound 01/27/20 01:49 Taken - Medications Given in the ED: ED Medications Discontinued Medications Generic Name Dose Route Start Last Admin Trade Name Freq PRN Reason Stop Dose Admin Hydromorphone HCl 1 mg 01/27/20 01:54 01/27/20 02:35 Dilaudid Injection - IVPUSH 01/27/20 01:55 1 mg ONCE ONE Administration Sodium Chloride 1,000 mls @ 1,000 mls/hr 01/27/20 01:52 01/27/20 02:36 Normal Saline - IV 01/27/20 02:51 1,000 mls/hr ASDIR STA Administration Ondansetron HCl 4 mg 01/27/20 02:00 01/27/20 02:36 Zofran Injection IVPUSH 01/27/20 02:01 4 mg ONCE ONE Administration ED Progress Note - Progress Note Progress Note: 01/27/20 04:23 A: abdominal pain P: cbc cmp ua 01/27/20 04:33 Patient reports that she has a GI appointment coming up in 1 month. She had similar episode of pain in June where she was seen in the ED. Reports that symptoms are similar to that visit. Patient reports feeling a lot better now. Strict return precautions reviewed with patient patient verbalized understanding. 01/27/20 04:34 Medical Decision Making - Medical Decision Making 01/27/20 02:51 Abd US: Right upper quadrant pain:The liver is normal, without mass or biliary duct dilation. The gallbladder is distended, possibly from a fasting state, without stones or other findings. The CBD is not dilated and measures6 millimeters in diameter. Right kidney measures 9.3centimeters in length and is unremarkable. The visualized aorta and IVC are normal. Pancreas is partially obscured, but appears normal. Abdominal duplex: The main portal vein demonstrates normal hepatopedal flow. IMPRESSION: No evidence of acute pathology. 01/27/20 04:35 Patient reports that she will be taking a taxi home. Will DC 01/27/20 04:35 Discharge - Discharge Information Problems reviewed: Yes Clinical Impression/Diagnosis: Abdominal pain Qualifiers: Abdominal location: right upper quadrant Qualified Code(s): R10.11 - Right upper quadrant pain Condition: Fair Disposition: HOME - Follow up/Referral - Patient Discharge Instructions Patient Printed Discharge Instructions: DI for Abdominal Pain-Adult Additional Instructions: Drink plenty of fluids. Please follow-up with a primary teacher as soon as possible Please follow-up with your primary care as soon as possible return to the emergency room for any worsening symptoms. - Post Discharge Activity Work/Back to School Note: Back to Work
[2020-01-27 02:55] LABS: ALBUMIN 3.6 g/dl (3.4-5.0); BILIRUBIN,TOTAL 0.3 mg/dL (0.2-1); BLOOD UREA NITROGEN 12.3 mg/dL (7-18); CALCIUM 8.5 mg/dL (8.5-10.1); CREATININE 0.8 mg/dL (0.55-1.3); POTASSIUM 5.7 mmol/L (3.5-5.1); TOT PROT 7.2 g/dl (6.4-8.2)
[2020-01-27 04:19] LABS: PH,URINE 6.5 (5.0-8.0); URINE APPEARANCE CLEAR; URINE BILIRUBIN NEGATIVE (NEGATIVE); URINE COLOR YELLOW; URINE GLUCOSE (UA) NEGATIVE (NEGATIVE); URINE KETONE NEGATIVE (NEGATIVE); URINE LEUK ESTERASE NEGATIVE (NEGATIVE); URINE NITRITE NEGATIVE (NEGATIVE); URINE PROTEIN NEGATIVE (NEGATIVE); URINE UROBILINOGEN 0.2 mg/dL (0.2-1.0)
[2020-01-27 04:21] LABS: HCG,QUALITATIVE URINE Negative
[2020-01-27 04:47] VITALS: BP 103/66; PULSE 55
--- NOTE | 2020-01-27 08:46 | EKG ---
Test Reason : Blood Pressure : / mmHG Vent. Rate : 060 BPM Atrial Rate : 060 BPM P-R Int : 138 ms QRS Dur : 094 ms QT Int : 418 ms P-R-T Axes : 032 029 010 degrees QTc Int : 418 ms NORMAL SINUS RHYTHM WITH SINUS ARRHYTHMIA NORMAL ECG NO PREVIOUS ECGS AVAILABLE Confirmed by Martin Pagan MD ([id number]) on 01/27/2020 8:46:21 AM Referred By: Confirmed By:Martin Pagan MD
== END 2020-01-27 04:48 | disposition home or self-care (01) ==
LOC: JER 00:51
PROC: 3E033NZ Introduction of Analgesics, Hypnotics, Sedatives into Peripheral Vein, Percutaneous Approach (ICD-10-PCS; principal; 2020-01-27)
PROC: 3E033GC Introduction of Other Therapeutic Substance into Peripheral Vein, Percutaneous Approach (ICD-10-PCS; 2020-01-27)
PROC: 3E0337Z Introduction of Electrolytic and Water Balance Substance into Peripheral Vein, Percutaneous Approach (ICD-10-PCS; 2020-01-27)
DX: R10.11 Right upper quadrant pain (principal)
CPT/HCPCS: 36415; 76705-TC; 80053; 81003; 83690; 84703; 85025; 93005; 93010; 99285-25

== ENCOUNTER 2020-07-07 04:32 | Inpatient (IN) | payer OTHER ==
[2020-07-07 04:51] VITALS: BMI 29.9
[2020-07-07] MEDS ORDERED: ACETAMINOPHEN 1000 MG/100 ML VIAL (NON FORMULARY) IVPB ONE ×2 (05:26→23:45)
[2020-07-07] MEDS ORDERED: FAMOTIDINE 20 MG/50 ML IVPB 20 MG/50 ML MG IVPB ONE ×2 (05:26→05:44)
[2020-07-07] MEDS ORDERED: ONDANSETRON 4 MG/2 ML VIAL IVPUSH ONE (05:26)
[2020-07-07] MEDS ORDERED: ACETAMINOPHEN INJECTION 100 ML IVPB ONE (05:44)
[2020-07-07] MEDS ORDERED: ONDANSETRON 4 MG/2 ML VIAL ONE ×2 (05:44→05:51)
[2020-07-07] MEDS ORDERED: morphine CARPU-JECT 4 MG/1 ML DISP.SYRIN IVPUSH ONE (05:44)
[2020-07-07] MEDS ORDERED: morphine SULFATE 4 MG/ML VIAL ONE (05:45)
[2020-07-07 06:07] LABS: BASO % 0.4 % (0-2.0); EOS % 1.6 % (0-4.5); HEMATOCRIT 34.4 % (32.4-45.2); HEMOGLOBIN 11.4 GM/dL (10.7-15.3); LYMPH % 15.5 % (8-40); MCH 28.1 pg (25.7-33.7); MCHC 33.3 g/dl (32.0-36.0); MEAN CELL VOLUME 84.5 fl (80-96); MEAN PLT VOLUME 7.9 fl (7.5-11.1); MONO % 7.2 % (3.8-10.2); NEUT % 75.3 % (42.8-82.8); PLATELET COUNT 317 K/MM3 (134-434); RBC 4.07 M/mm3 (3.60-5.2); RDW 16.8 % (11.6-15.6); WHITE BLOOD COUNT 8.3 K/mm3 (4.0-10.0)
[2020-07-07 06:14] LABS: INR 0.97 (0.83-1.09)
[2020-07-07 06:26] LABS: CHLORIDE 104 mmol/L (98-107); SODIUM 123 mmol/L (136-145)
[2020-07-07 06:28] LABS: CALCIUM 8.5 mg/dL (8.5-10.1)
[2020-07-07 06:29] LABS: ALBUMIN 3.7 g/dl (3.4-5.0); BLOOD UREA NITROGEN 12.6 mg/dL (7-18); CO2 27 mmol/L (21-32); GLUCOSE,RANDOM 88 mg/dL (74-106); LIPASE 15 U/L (73-393)
[2020-07-07 06:32] LABS: CREATININE 0.8 mg/dL (0.55-1.3)
[2020-07-07 06:35] LABS: ALK PHOS 79 U/L (45-117)
[2020-07-07 07:10] LABS: ANION GAP -8 MMOL/L (8-16); POTASSIUM > 10.0 mmol/L (3.5-5.1); SGOT/AST 176 U/L (15-37)
[2020-07-07 07:19] LABS: BILIRUBIN,TOTAL < 0.1 mg/dL (0.2-1)
[2020-07-07 07:57] LABS: POTASSIUM 4.3 mmol/L (3.5-5.1)
[2020-07-07 07:59] LABS: ALBUMIN 3.6 g/dl (3.4-5.0); CALCIUM 8.8 mg/dL (8.5-10.1)
[2020-07-07 08:03] LABS: CREATININE 0.6 mg/dL (0.55-1.3)
[2020-07-07 08:04] LABS: BILIRUBIN,TOTAL 0.2 mg/dL (0.2-1)
[2020-07-07 08:08] LABS: TOT PROT 6.7 g/dl (6.4-8.2)
[2020-07-07] MEDS: LACTATED RINGERS SOLUTION 1,000 ML IV SCH (13:47)
[2020-07-07] MEDS: MORPHINE SULFATE 2 MG/ML VIAL IVPUSH PRN ×2 (14:30→21:53)
[2020-07-07] MEDS ORDERED: MORPHINE SULFATE 2 MG/ML VIAL ONE (14:35)
[2020-07-07] MEDS ORDERED: ONDANSETRON 4 MG/2 ML VIAL IVPUSH PRN (15:33)
[2020-07-07] MEDS ORDERED: PIPERACILLIN/TAZOBACTAM 3.375 GM VIAL IVPB ONE (18:16)
[2020-07-07] MEDS ORDERED: DEXTROSE 5%-WATER - 50 ML IVPB ONE (18:16)
[2020-07-07] MEDS ORDERED: PT OWN MED DRAWER 7, Y5N ONE (18:17)
[2020-07-07] MEDS: oxyCODONE HCL 5 MG TABLET PO PRN (18:32)
[2020-07-07] MEDS: PIPERACILLIN/TAZOB 3.375 GM 3.375 GM in DEXTROSE 5%-WATER - 50 ML IVPB SCH (18:33)
[2020-07-08] MEDS ORDERED: PIPERACILLIN/TAZOBACTAM 3.375 GM VIAL IVPB ONE ×2 (01:43→07:56)
[2020-07-08] MEDS ORDERED: DEXTROSE 5%-WATER - 50 ML IVPB ONE ×3 (01:43→16:27)
[2020-07-08] MEDS: PIPERACILLIN/TAZOB 3.375 GM 3.375 GM in DEXTROSE 5%-WATER - 50 ML IVPB SCH ×4 (01:44→17:29)
[2020-07-08 02:16] LABS: URINE APPEARANCE CLEAR; URINE BILIRUBIN NEGATIVE (NEGATIVE); URINE COLOR YELLOW; URINE GLUCOSE (UA) NEGATIVE (NEGATIVE); URINE KETONE NEGATIVE (NEGATIVE); URINE LEUK ESTERASE NEGATIVE (NEGATIVE); URINE NITRITE NEGATIVE (NEGATIVE); URINE PROTEIN NEGATIVE (NEGATIVE); URINE UROBILINOGEN 0.2 mg/dL (0.2-1.0)
[2020-07-08] MEDS: MORPHINE SULFATE 2 MG/ML VIAL IVPUSH PRN ×5 (03:25→22:53)
[2020-07-08] MEDS: oxyCODONE HCL 5 MG TABLET PO PRN ×2 (05:47→20:16)
[2020-07-08 08:41] LABS: BASO % 0.2 % (0-2.0); EOS % 0.1 % (0-4.5); HEMATOCRIT 33.2 % (32.4-45.2); LYMPH % 7.8 % (8-40); MCH 28.2 pg (25.7-33.7); MCHC 33.2 g/dl (32.0-36.0); MEAN CELL VOLUME 84.8 fl (80-96); MEAN PLT VOLUME 7.7 fl (7.5-11.1); MONO % 9.8 % (3.8-10.2); NEUT % 82.1 % (42.8-82.8); PLATELET COUNT 288 K/MM3 (134-434); RBC 3.92 M/mm3 (3.60-5.2); RDW 16.5 % (11.6-15.6)
[2020-07-08 09:03] LABS: POTASSIUM 3.9 mmol/L (3.5-5.1)
[2020-07-08 09:12] LABS: CALCIUM 9.6 mg/dL (8.5-10.1)
[2020-07-08 09:13] LABS: ALBUMIN 3.5 g/dl (3.4-5.0); BLOOD UREA NITROGEN 6.4 mg/dL (7-18); MAGNESIUM 2.2 mg/dL (1.8-2.4)
[2020-07-08 09:15] LABS: CREATININE 0.7 mg/dL (0.55-1.3); PHOSPHOROUS 3.2 mg/dL (2.5-4.9)
[2020-07-08 09:17] LABS: BILIRUBIN,TOTAL 0.8 mg/dL (0.2-1); TOT PROT 7.1 g/dl (6.4-8.2)
[2020-07-08] MEDS: LACTATED RINGERS SOLUTION 1,000 ML IV SCH (12:31)
[2020-07-08] MEDS ORDERED: cefTRIAXone SODIUM 1 GM VIAL ONE (16:27)
[2020-07-08] MEDS: CEFTRIAXONE 1 GM in DEXTROSE 5%-WATER - 50 ML IVPB SCH (16:33)
[2020-07-09] MEDS: LACTATED RINGERS SOLUTION 1,000 ML IV SCH ×2 (01:42→22:06)
[2020-07-09] MEDS ORDERED: ACETAMINOPHEN 1000 MG/100 ML VIAL (NON FORMULARY) IVPB ONE (02:05)
[2020-07-09 08:42] LABS: BASO % 0.3 % (0-2.0); EOS % 0.1 % (0-4.5); HEMATOCRIT 30.8 % (32.4-45.2); HEMOGLOBIN 10.2 GM/dL (10.7-15.3); LYMPH % 8.9 % (8-40); MCH 28.3 pg (25.7-33.7); MCHC 33.1 g/dl (32.0-36.0); MEAN CELL VOLUME 85.5 fl (80-96); MONO % 9.4 % (3.8-10.2); NEUT % 81.3 % (42.8-82.8); PLATELET COUNT 258 K/MM3 (134-434); RDW 16.5 % (11.6-15.6); WHITE BLOOD COUNT 10.9 K/mm3 (4.0-10.0)
[2020-07-09] MEDS ORDERED: DEXTROSE 5%-WATER - 50 ML IVPB ONE (09:08)
[2020-07-09] MEDS ORDERED: cefTRIAXone SODIUM 1 GM VIAL ONE (09:08)
[2020-07-09 09:17] LABS: POTASSIUM 3.4 mmol/L (3.5-5.1)
[2020-07-09 09:25] LABS: ALBUMIN 2.9 g/dl (3.4-5.0); BLOOD UREA NITROGEN 6.1 mg/dL (7-18); CALCIUM 9.2 mg/dL (8.5-10.1)
[2020-07-09 09:28] LABS: CREATININE 0.7 mg/dL (0.55-1.3)
[2020-07-09 09:30] LABS: TOT PROT 6.4 g/dl (6.4-8.2)
[2020-07-09] MEDS: ENOXAPARIN NA (PORCINE) 40 MG/0.4 ML DISP.SYRIN SQ SCH (09:34)
[2020-07-09] MEDS: CEFTRIAXONE 1 GM in DEXTROSE 5%-WATER - 50 ML IVPB SCH (09:34)
[2020-07-09] MEDS ORDERED: PIPERACILLIN/TAZOB 3.375 GM 3.375 GM in DEXTROSE 5%-WATER - 50 ML IVPB SCH (12:30)
[2020-07-09] MEDS ORDERED: PIPERACILLIN/TAZOBACTAM 4.5 GM VIAL IVPB ONE ×2 (13:21→17:37)
[2020-07-09] MEDS ORDERED: DEXTROSE 5%-WATER 100 ML IVPB ONE ×2 (13:21→17:37)
[2020-07-09] MEDS: PIPERACILLIN/TAZOB 4.5 GM 4.5 GM in DEXTROSE 5%-WATER 100 ML IVPB SCH ×2 (13:27→18:58)
[2020-07-09] MEDS ORDERED: ACETAMINOPHEN 1000 MG/100 ML VIAL (NON FORMULARY) IVPB PRN (15:11)
[2020-07-09] MEDS ORDERED: SODIUM CHLORIDE 1,000 ML IV STA (15:12)
[2020-07-09] MEDS ORDERED: POTASSIUM CHLORIDE ORAL LIQUID 20 MEQ/15 ML PO ONE (15:27)
[2020-07-09 20:02] LABS: EPI CELLS >36 /uL (0-25.1); HYALINE CASTS 10 /uL (0-3.1); PH,URINE 7.5 (5.0-8.0); URINE APPEARANCE CLOUDY; URINE BACTERIA 883 /uL (0-1359); URINE BILIRUBIN NEGATIVE (NEGATIVE); URINE COLOR ORANGE; URINE GLUCOSE (UA) NEGATIVE (NEGATIVE); URINE KETONE 2+ (NEGATIVE); URINE LEUK ESTERASE 1+ (NEGATIVE); URINE NITRITE NEGATIVE (NEGATIVE); URINE PROTEIN 2+ (NEGATIVE); URINE RBC 2806 /uL (0-23.9); URINE WBC 39 /uL (0-25.8)
[2020-07-10] MEDS ORDERED: DEXTROSE 5%-WATER 100 ML IVPB ONE ×2 (01:28→20:29)
[2020-07-10] MEDS ORDERED: PIPERACILLIN/TAZOBACTAM 4.5 GM VIAL IVPB ONE ×2 (01:28→20:29)
[2020-07-10] MEDS: PIPERACILLIN/TAZOB 4.5 GM 4.5 GM in DEXTROSE 5%-WATER 100 ML IVPB SCH ×4 (01:31→20:54)
[2020-07-10] MEDS ORDERED: HYDROmorphone HCl 2 MG/ML VIAL ONE (08:31)
[2020-07-10] MEDS ORDERED: DEXAMETHASONE SOD PHOSPHATE 4 MG/1 ML VIAL ONE (08:36)
[2020-07-10] MEDS ORDERED: ROCURONIUM BROMIDE 50 MG/5 ML SYRINGE ONE (08:44)
[2020-07-10] MEDS ORDERED: BUPIVACAINE HCL 50 ML ONE (08:51)
[2020-07-10] MEDS ORDERED: KETOROLAC TROMETHAMINE 30 MG/1 ML VIAL ONE (09:55)
[2020-07-10] MEDS ORDERED: BUPIVACAINE HCL/PF 0.5% (5MG/ML) 10 ML VIAL IJ ONE (10:36)
[2020-07-10] MEDS ORDERED: KETOROLAC TROMETHAMINE 15 MG/ML VIAL IVPUSH PRN ×2 (11:06→19:00)
[2020-07-10] MEDS ORDERED: ACETAMINOPHEN INJECTION 100 ML IVPB ONE (11:16)
[2020-07-10] MEDS ORDERED: ONDANSETRON 4 MG/2 ML VIAL IVPUSH PRN (11:24)
[2020-07-10] MEDS ORDERED: ACETAMINOPHEN 1000 MG/100 ML VIAL (NON FORMULARY) IVPB ONE (12:00)
[2020-07-10] MEDS: ENOXAPARIN NA (PORCINE) 40 MG/0.4 ML DISP.SYRIN SQ SCH (12:50)
[2020-07-10] MEDS: oxyCODONE HCL 5 MG TABLET PO PRN (14:33)
[2020-07-10] MEDS ORDERED: POTASSIUM CHLORIDE TABS 20 MEQ TABLET.ER (FP) PO ONE (15:00)
[2020-07-10] MEDS: ACETAMINOPHEN 325 MG TABLET (FP) PO SCH ×2 (17:55→23:15)
[2020-07-10] MEDS ORDERED: PIPERACILLIN/TAZOB 4.5 GM 4.5 GM in DEXTROSE 5%-WATER 100 ML IVPB SCH (18:00)
[2020-07-10] MEDS: LACTATED RINGERS SOLUTION 1,000 ML IV SCH (19:17)
[2020-07-10 20:30] LABS: BASO % 0.3 % (0-2.0); HEMATOCRIT 26.4 % (32.4-45.2); HEMOGLOBIN 8.8 GM/dL (10.7-15.3); LYMPH % 3.7 % (8-40); MCH 28.7 pg (25.7-33.7); MCHC 33.3 g/dl (32.0-36.0); MEAN CELL VOLUME 86.2 fl (80-96); MEAN PLT VOLUME 7.7 fl (7.5-11.1); MONO % 5.7 % (3.8-10.2); NEUT % 90.3 % (42.8-82.8); PLATELET COUNT 256 K/MM3 (134-434); RBC 3.07 M/mm3 (3.60-5.2); RDW 16.6 % (11.6-15.6); WHITE BLOOD COUNT 9.3 K/mm3 (4.0-10.0)
[2020-07-10 21:19] LABS: ALBUMIN 2.6 g/dl (3.4-5.0); BILIRUBIN,DIRECT 0.1 mg/dL (0.0-0.2); BILIRUBIN,TOTAL 0.4 mg/dL (0.2-1); BLOOD UREA NITROGEN 10.4 mg/dL (7-18); CALCIUM 8.5 mg/dL (8.5-10.1); CREATININE 0.6 mg/dL (0.55-1.3); POTASSIUM 3.5 mmol/L (3.5-5.1); TOT PROT 5.8 g/dl (6.4-8.2)
[2020-07-11] MEDS ORDERED: PIPERACILLIN/TAZOBACTAM 4.5 GM VIAL IVPB ONE (03:36)
[2020-07-11] MEDS ORDERED: DEXTROSE 5%-WATER 100 ML IVPB ONE (03:36)
[2020-07-11] MEDS: PIPERACILLIN/TAZOB 4.5 GM 4.5 GM in DEXTROSE 5%-WATER 100 ML IVPB SCH (03:41)
[2020-07-11] MEDS: LACTATED RINGERS SOLUTION 1,000 ML IV SCH (03:41)
[2020-07-11] MEDS: ACETAMINOPHEN 325 MG TABLET (FP) PO SCH ×2 (05:24→11:19)
[2020-07-11 09:17] LABS: BASO % 0.1 % (0-2.0); LYMPH % 10.2 % (8-40); MCH 28.6 pg (25.7-33.7); MCHC 33.4 g/dl (32.0-36.0); MEAN CELL VOLUME 85.5 fl (80-96); MEAN PLT VOLUME 8.2 fl (7.5-11.1); MONO % 7.6 % (3.8-10.2); NEUT % 82.1 % (42.8-82.8); PLATELET COUNT 258 K/MM3 (134-434); RBC 2.81 M/mm3 (3.60-5.2); RDW 16.5 % (11.6-15.6); WHITE BLOOD COUNT 7.8 K/mm3 (4.0-10.0)
[2020-07-11 09:47] LABS: POTASSIUM 3.6 mmol/L (3.5-5.1)
[2020-07-11 09:57] LABS: CALCIUM 8.1 mg/dL (8.5-10.1)
[2020-07-11 09:58] LABS: ALBUMIN 2.3 g/dl (3.4-5.0); BLOOD UREA NITROGEN 10.5 mg/dL (7-18)
[2020-07-11 10:00] LABS: BILIRUBIN,DIRECT 0.1 mg/dL (0.0-0.2); CREATININE 0.5 mg/dL (0.55-1.3)
[2020-07-11] MEDS ORDERED: ENOXAPARIN NA (PORCINE) 40 MG/0.4 ML DISP.SYRIN SQ SCH (10:00)
[2020-07-11 10:03] LABS: BILIRUBIN,TOTAL 0.8 mg/dL (0.2-1); TOT PROT 5.3 g/dl (6.4-8.2)
[2020-07-11] MEDS: oxyCODONE HCL 5 MG TABLET PO PRN (14:14)
[2020-07-11 14:53] VITALS: BP 104/68; PULSE 81; TEMP 97.6
== END 2020-07-11 15:16 | disposition home or self-care (01) | DRG 263 ==
LOC: JER 04:32 → JERBED 09:31 → J5S 16:00
PROVIDERS: ADMIT Internal Medicine
PROC: 0FT44ZZ Resection of Gallbladder, Percutaneous Endoscopic Approach (ICD-10-PCS; principal; 2020-07-10 08:00)
DX: K80.00 Calculus of gallbladder with acute cholecystitis without obstruction (principal); K82.1 Hydrops of gallbladder; R11.2 Nausea with vomiting, unspecified; R10.11 Right upper quadrant pain; I10 Essential (primary) hypertension; E78.5 Hyperlipidemia, unspecified; Z98.890 Other specified postprocedural states; E66.9 Obesity, unspecified; Z68.29 Body mass index [BMI] 29.0-29.9, adult; E87.1 Hypo-osmolality and hyponatremia
CPT/HCPCS: 36415; 74181-TC; 76705-TC; 78227-TC; 80048; 80053; 80076; 81003; 82150; 83605; 83690; 83735; 84100; 84703; 85025; 85610; 86140; 87040; 87086; 88304-TC; 93005; 93010; 94760; 99285-25; A9537; C9803; J0131; U0003

== ENCOUNTER 2020-10-27 07:51 | Inpatient (IN) | payer OTHER ==
[2020-10-27 08:05] VITALS: BMI 29.9
[2020-10-27] MEDS ORDERED: FAMOTIDINE 20 MG/50 ML IVPB 20 MG/50 ML MG IVPB ONE ×2 (09:26→09:33)
[2020-10-27] MEDS ORDERED: MAG HYDROX/AL HYDROX/SIMETH 30 ML UNIT-DOSE CUP PO ONE (09:26)
[2020-10-27] MEDS ORDERED: ACETAMINOPHEN 1000 MG/100 ML VIAL (NON FORMULARY) IVPB ONE (09:31)
[2020-10-27] MEDS ORDERED: MAG HYDROX/AL HYDROX/SIMETH 30 ML UNIT-DOSE CUP ONE (09:33)
[2020-10-27] MEDS ORDERED: ACETAMINOPHEN INJECTION 100 ML IVPB ONE (09:54)
[2020-10-27 10:11] LABS: BASO % 0.9 % (0-2.0); HEMATOCRIT 33.6 % (32.4-45.2); LYMPH % 34.8 % (8-40); MCH 27.3 pg (25.7-33.7); MCHC 32.6 g/dl (32.0-36.0); MEAN CELL VOLUME 83.7 fl (80-96); MEAN PLT VOLUME 7.7 fl (7.5-11.1); MONO % 9.5 % (3.8-10.2); NEUT % 52.8 % (42.8-82.8); PLATELET COUNT 343 10^3/uL (134-434); RBC 4.02 M/mm3 (3.60-5.2); RDW 14.3 % (11.6-15.6); WHITE BLOOD COUNT 4.2 K/mm3 (4.0-10.0)
[2020-10-27 10:28] LABS: CHLORIDE 108 mmol/L (98-107); SODIUM 140 mmol/L (136-145)
[2020-10-27 10:31] LABS: ANION GAP 4 MMOL/L (8-16); CALCIUM 8.8 mg/dL (8.5-10.1); CO2 28 mmol/L (21-32)
[2020-10-27 10:32] LABS: GLUCOSE,RANDOM 95 mg/dL (74-106); LIPASE 96 U/L (73-393)
[2020-10-27 10:34] LABS: SGOT/AST 12 U/L (15-37); SGPT/ALT 28 U/L (13-61)
[2020-10-27 10:36] LABS: BILIRUBIN,TOTAL 0.4 mg/dL (0.2-1); TOT PROT 7.3 g/dl (6.4-8.2)
[2020-10-27 10:37] LABS: ALK PHOS 76 U/L (45-117)
[2020-10-27 11:00] LABS: CREATININE 0.6 mg/dL (0.55-1.3)
[2020-10-27] MEDS ORDERED: CEFAZOLIN 1 GM/D5W 1 GM/50 ML BAG IVPB SCH (14:00)
[2020-10-27] MEDS ORDERED: ONDANSETRON 4 MG/2 ML VIAL IM PRN (15:37)
[2020-10-27] MEDS ORDERED: ACETAMINOPHEN 1000 MG/100 ML VIAL (NON FORMULARY) IVPB PRN (15:37)
[2020-10-27 15:50] LABS: INR 1.04 (0.83-1.09); PROTHROMBIN TIME (PATIENT) 12.6 SEC (9.7-13.0)
[2020-10-27 15:54] LABS: ACTIVATED PTT 28.9 SECONDS (25.2-36.5)
[2020-10-27] MEDS ORDERED: CEFAZOLIN 1 GM/D5W 1 GM/50 ML BAG ONE (17:30)
[2020-10-27] MEDS: LACTATED RINGERS SOLUTION 1,000 ML/1,000 ML INFUS.BAG IV SCH ×2 (17:35→21:59)
[2020-10-27] MEDS ORDERED: DEXTROSE 5%-WATER - 50 ML IVPB ONE (21:28)
[2020-10-27] MEDS ORDERED: ceFAZolin SODIUM 1 GM VIAL ONE (21:28)
[2020-10-27] MEDS: CEFAZOLIN 1 GM in DEXTROSE 5%-WATER - 50 ML IVPB SCH (21:52)
[2020-10-28] MEDS ORDERED: ceFAZolin SODIUM 1 GM VIAL ONE ×4 (02:45→23:25)
[2020-10-28] MEDS ORDERED: DEXTROSE 5%-WATER - 50 ML IVPB ONE ×4 (02:45→23:25)
[2020-10-28] MEDS: CEFAZOLIN 1 GM in DEXTROSE 5%-WATER - 50 ML IVPB SCH ×4 (02:48→23:00)
[2020-10-28 09:32] LABS: BASO % 0.8 % (0-2.0); EOS % 2.3 % (0-4.5); HEMATOCRIT 34.8 % (32.4-45.2); HEMOGLOBIN 11.3 GM/dL (10.7-15.3); LYMPH % 33.6 % (8-40); MCH 27.2 pg (25.7-33.7); MCHC 32.6 g/dl (32.0-36.0); MEAN CELL VOLUME 83.7 fl (80-96); MEAN PLT VOLUME 7.5 fl (7.5-11.1); MONO % 6.1 % (3.8-10.2); NEUT % 57.2 % (42.8-82.8); PLATELET COUNT 347 10^3/uL (134-434); RBC 4.16 M/mm3 (3.60-5.2); RDW 14.5 % (11.6-15.6)
[2020-10-28 09:36] LABS: INR 1.01 (0.83-1.09); PROTHROMBIN TIME (PATIENT) 12.4 SEC (9.7-13.0)
[2020-10-28 10:19] LABS: ALBUMIN 3.9 g/dl (3.4-5.0); BLOOD UREA NITROGEN 10.7 mg/dL (7-18)
[2020-10-28 10:22] LABS: CREATININE 0.7 mg/dL (0.55-1.3)
[2020-10-28 10:24] LABS: BILIRUBIN,TOTAL 0.4 mg/dL (0.2-1); TOT PROT 7.4 g/dl (6.4-8.2)
[2020-10-28] MEDS ORDERED: INDOMETHACIN 50 MG RECTAL SUPPOSITORY PR ONE ×2 (13:00→13:08)
[2020-10-28] MEDS ORDERED: IOHEXOL 300 MG/ML INFUS..BTL IV ONE (13:53)
[2020-10-28] MEDS ORDERED: LACTATED RINGERS SOLUTION 1,000 ML/1,000 ML INFUS.BAG IV SCH (14:45)
[2020-10-29] MEDS ORDERED: LACTATED RINGERS SOLUTION 1,000 ML/1,000 ML INFUS.BAG IV SCH ×3 (01:00→15:00)
[2020-10-29] MEDS ORDERED: ceFAZolin SODIUM 1 GM VIAL ONE ×4 (03:35→20:56)
[2020-10-29] MEDS ORDERED: DEXTROSE 5%-WATER - 50 ML IVPB ONE ×4 (03:35→20:56)
[2020-10-29] MEDS: CEFAZOLIN 1 GM in DEXTROSE 5%-WATER - 50 ML IVPB SCH ×4 (03:37→21:03)
[2020-10-29 08:00] LABS: BASO % 0.5 % (0-2.0); EOS % 2.2 % (0-4.5); HEMATOCRIT 32.3 % (32.4-45.2); HEMOGLOBIN 10.7 GM/dL (10.7-15.3); LYMPH % 27.8 % (8-40); MCH 27.7 pg (25.7-33.7); MCHC 33.2 g/dl (32.0-36.0); MEAN CELL VOLUME 83.4 fl (80-96); MEAN PLT VOLUME 7.6 fl (7.5-11.1); MONO % 7.8 % (3.8-10.2); NEUT % 61.7 % (42.8-82.8); PLATELET COUNT 320 10^3/uL (134-434); RBC 3.88 M/mm3 (3.60-5.2); RDW 14.5 % (11.6-15.6); WHITE BLOOD COUNT 4.1 K/mm3 (4.0-10.0)
[2020-10-29 08:08] LABS: PROTHROMBIN TIME (PATIENT) 12.1 SEC (9.7-13.0)
[2020-10-29 08:20] LABS: ALBUMIN 3.7 g/dl (3.4-5.0)
[2020-10-29 08:21] LABS: BLOOD UREA NITROGEN 8.9 mg/dL (7-18); CALCIUM 8.7 mg/dL (8.5-10.1)
[2020-10-29 08:22] LABS: ALBUMIN 3.7 g/dl (3.4-5.0); MAGNESIUM 2.3 mg/dL (1.8-2.4)
[2020-10-29 08:23] LABS: BILIRUBIN,DIRECT 0.1 mg/dL (0.0-0.2)
[2020-10-29 08:24] LABS: CREATININE 0.7 mg/dL (0.55-1.3)
[2020-10-29 08:25] LABS: BILIRUBIN,TOTAL 0.2 mg/dL (0.2-1); PHOSPHOROUS 3.9 mg/dL (2.5-4.9)
[2020-10-29 08:26] LABS: BILIRUBIN,TOTAL 0.3 mg/dL (0.2-1)
[2020-10-29 08:40] LABS: LIPASE 106 U/L (73-393)
[2020-10-29 08:41] LABS: AMYLASE 99 U/L (25-115)
[2020-10-29] MEDS ORDERED: ACETAMINOPHEN 325 MG TABLET (FP) PO PRN (16:06)
[2020-10-29 23:27] VITALS: TEMP 98.9
[2020-10-30] MEDS ORDERED: DEXTROSE 5%-WATER - 50 ML IVPB ONE ×2 (03:53→09:03)
[2020-10-30] MEDS ORDERED: ceFAZolin SODIUM 1 GM VIAL ONE ×2 (03:53→09:02)
[2020-10-30] MEDS: CEFAZOLIN 1 GM in DEXTROSE 5%-WATER - 50 ML IVPB SCH ×2 (03:55→09:11)
[2020-10-30 06:37] VITALS: BP 99/65; PULSE 69
[2020-10-30 07:33] LABS: BASO % 0.9 % (0-2.0); EOS % 3.5 % (0-4.5); HEMATOCRIT 31.7 % (32.4-45.2); HEMOGLOBIN 10.5 GM/dL (10.7-15.3); LYMPH % 35.6 % (8-40); MCH 27.6 pg (25.7-33.7); MCHC 33.1 g/dl (32.0-36.0); MEAN CELL VOLUME 83.5 fl (80-96); MEAN PLT VOLUME 7.7 fl (7.5-11.1); MONO % 8.3 % (3.8-10.2); NEUT % 51.7 % (42.8-82.8); PLATELET COUNT 297 10^3/uL (134-434); RDW 14.5 % (11.6-15.6); WHITE BLOOD COUNT 3.8 K/mm3 (4.0-10.0)
[2020-10-30 07:42] LABS: ALBUMIN 3.6 g/dl (3.4-5.0)
[2020-10-30 07:45] LABS: BILIRUBIN,DIRECT 0.1 mg/dL (0.0-0.2); TOT PROT 6.6 g/dl (6.4-8.2)
[2020-10-30 07:46] LABS: BILIRUBIN,TOTAL 0.3 mg/dL (0.2-1)
== END 2020-10-30 12:00 | disposition home or self-care (01) | DRG 950 ==
LOC: JER 07:51 → JERBED 14:05 → J7W 19:30
PROVIDERS: ATTEND Student in an Organized Health Care Education/Training Program
PROC: BF10YZZ Fluoroscopy of Bile Ducts using Other Contrast (ICD-10-PCS; 2020-10-28)
PROC: 0F798ZZ Dilation of Common Bile Duct, Via Natural or Artificial Opening Endoscopic (ICD-10-PCS; 2020-10-28)
PROC: 0FPB8DZ Removal of Intraluminal Device from Hepatobiliary Duct, Via Natural or Artificial Opening Endoscopic (ICD-10-PCS; principal; 2020-10-28 12:00)
DX: K91.89 Other postprocedural complications and disorders of digestive system (principal); Y83.9 Surgical procedure, unspecified as the cause of abnormal reaction of the patient, or of later complication, without mention of misadventure at the time of the procedure; K83.1 Obstruction of bile duct; R10.12 Left upper quadrant pain; Z68.29 Body mass index [BMI] 29.0-29.9, adult; E66.9 Obesity, unspecified
CPT/HCPCS: 36415; 71046-TC-FY; 74177-TC; 80053; 80076; 82150; 82550; 82553; 83605; 83690; 83735; 84100; 84484; 84703; 85025; 85610; 85730; 86140; 86850; 86900; 86901; 88300-TC; 93005; 93010; 97116-GP; 97161-GP; 99285-25; C9803; J0131; Q9967; U0003; U0005